=== PATIENT | male | born 1970 | race Caucasian/White ===

== ENCOUNTER → 2022-07-11 | Outpatient (CLI) | payer OTHER, SELFPAY ==
[2022-07-11 16:54] LABS: Absolute Lymphocyte Count 2.47 X10^3/uL (0.83-4.51); Absolute Neutrophil Count 6.6 X10^3/uL (2.0-7.7); Basophil# 0.05 X10^3/uL; Basophil% 0.5 % (0-1); Eosinophil# 0.13 X10^3/uL; Eosinophils% 1.3 % (0-5); Hematocrit 42.7 % (40-54); Hemoglobin 14.8 g/dL (13.0-16.5); Lymphocyte # 2.47 X10^3/ul (0.83-4.51); Lymphocyte % 24.7 % (19-41); Mean Corp Hgb Conc 34.7 g/dL (32-36); Mean Corpuscular Hgb 29.4 pg (27.0-32.0); Mean Corpuscular Volume 84.9 fL (80-94); Mean Platelet Vol. 10.3 fl (6.2-12.0); Monocyte# 0.74 X10^3/uL; Monocyte% 7.4 % (0-10); NRBC Flagged by Analyzer 0 % (0-5); Neutrophil # 6.55 X10^3/uL (2.7-7.7); Neutrophil % 65.5 % (47-70); Platelet Count 295 K/mm3 (150-450); RBC Distribution Width CV 13.2 % (11.6-14.6); RBC Distribution Width SD 40.3 fl (35.1-43.9); Red Blood Count 5.03 M/mm3 (4.6-6.2)
[2022-07-11 17:31] LABS: Microalbumin:Creatinine Ratio 6.5 mg/g CRE (<30 mg/g CRE)
[2022-07-11 17:36] LABS: ALB/GLOB Ratio 1.1 RATIO (0.9-2.4); AST(SGOT) 16 U/L (15-37); Alanine Aminotransfer ALT/SGPT 33 U/L (16-61); Albumin, Serum 3.9 g/dL (3.2-5.0); Alkaline Phosphatase 163 U/L (45-117); Anion Gap 7 (5-15); BUN 13 mg/dL (7-18); BUN/Creat Ratio 14.8 RATIO (10-20); Calcium,Total 9.6 mg/dL (8.5-10.1); Chloride 103 mmol/L (98-107); Cholesterol 70 mg/dL (200); Creatinine, Serum 0.88 mg/dL (0.70-1.30); EST Glomerular Filtration Rate 96 mL/min (>60); Est Glom Filt Rate - Afr Amer 116 mL/min (>60); Globulin 3.5 g/dL (2.2-4.2); Glucose 171 mg/dL (74-106); High Density Lipoprotein 29 mg/dL; PSA,Total - Annual Screen 0.73 ng/mL (0.00-4.00); Potassium 3.7 mmol/L (3.5-5.1); Protein, Total 7.4 g/dL (6.4-8.2); Sodium Level 136 mmol/L (136-145); Thyroid Stim Hormone (TSH) 0.83 uIU/mL (0.358-3.74); Triglycerides 89 mg/dL; Very Low Density Lipoprotein 18 mg/dL (5-40)
== END | disposition home or self-care (01) ==
LOC: BIMLAB 16:16
PROVIDERS: Visit Provider Nurse Practitioner Family
DX: E11.9 Type 2 diabetes mellitus without complications (principal); I10 Essential (primary) hypertension; Z12.5 Encounter for screening for malignant neoplasm of prostate
CPT/HCPCS: 36415; 80053; 80061; 82043; 82570; 84153; 84443; 85025; G0103

== ENCOUNTER 2024-03-31 06:36 | Day surgery (SDC) | payer OTHER, SELFPAY ==
[2024-03-31] VITALS (8 sets, daily range): BP systolic 130–147; BP diastolic 73–81; PULSE 68–82; RESP 16–20; TEMP 36.3–37.1; O2SAT 95–98; BMI 40.4
[2024-03-31] MEDS: Lactated Ringers 1,000 ML 15 ML IV (06:59)
--- NOTE | 2024-03-31 07:06 | PCM.PRE.AN2 ---
ASA Classification* ASA Classification ASA Classification: 3 Assessment & Plan Anesthesia* Anesthesia Assessment Anesthesia Assessment: Discussed sedation and/or anesthesia options, risks, benefits, and alternatives with patient/parents/legal guardian/POA. Questions invited. The patient/parents/legal guardian/POA seems to understand and agrees to proceed with anesthesia plan. Reviewed the physical assessment, medical history, allergy history and patient home medications list prior to surgery/procedure/anesthetic and documented any changes. Performed airway and anesthesia risk assessments. Anesthesia Type Anesthesia Type: MAC (see written pre anesthesia record for full assessment) Anesthesia Focused Assessment* Temperature: 97.4 F Pulse Rate: 74 Blood Pressure: 147/81 Respiratory Rate: 16 Pulse Ox: 98 Airway Assessment Mouth opens: >3 cm Mallampati Score: II Focused Labs Anesthesia Preop lab: CBC WBC 10.0 K/mm3 (4.4-11.0) 07/11/22 16:16 RBC 5.03 M/mm3 (4.6-6.2) 07/11/22 16:16 Hgb 14.8 g/dL (13.0-16.5) 07/11/22 16:16 Hct 42.7 % (40-54) 07/11/22 16:16 Plt Count 295 K/mm3 (150-450) 07/11/22 16:16 CHEMISTRY Potassium 3.7 mmol/L (3.5-5.1) 07/11/22 16:16 Sodium 136 mmol/L (136-145) 07/11/22 16:16 BUN 13 mg/dL (7-18) 07/11/22 16:16 Creatinine 0.88 mg/dL (0.70-1.30) 07/11/22 16:16 Glucose 171 mg/dL (74-106) H 07/11/22 16:16 TSH 0.83 uIU/mL (0.358-3.74) 07/11/22 16:16 COAG Pre-Assessment Diagnosis/Proposed Procedure Planned Operative Procedure(s): CSCOPE OA Anesthesia History 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 When Was Last Pacemaker Check QUESTION #4 FULL TEXT: You/Your Family Experience fever (hyperthermia) with Anesthesia Last Oral Intake Last Oral intake: Last Oral Intake NPO since Meds taken in AM with sips of water? Meds patient instructed to take am of surgery PONV PONV - dry cure worker: PONV - dry cure worker Female No 03/25/24 10:53 HX of Motion Sickness No 03/25/24 10:53 HX of N/V After Surgery No 03/25/24 10:53 Non-Smoker Yes 03/25/24 10:53 Duration of Surgery greater No 03/25/24 10:53 than 60 minutes Number of Risk Factors 1 03/25/24 10:53 PONV Score Low Risk 03/25/24 10:53 Height & Weight Height & Weight: Anesthesia: Height & Weight Height 6 ft 1 in 03/31/24 06:52 Weight: 139 kg 03/31/24 06:52 Body Mass Index (BMI) 40.4 03/31/24 06:52 Respiratory Assessment Respiratory Assessment - dry cure worker: Respiratory Tract Infection Hx - dry cure worker Hx Respiratory Tract Infection No 03/25/24 10:53 STOP Sleep Apnea STOP Sleep Apnea - dry cure worker: STOP Sleep Apnea - dry cure worker Hx Hypertension Yes: CONTROLLED WITH MED 03/25/24 10:53 Hx Sleep Apnea Yes 03/25/24 10:53 CPAP Yes 03/25/24 10:53 BIPAP No 03/25/24 10:53 Do you snore loudly (louder than talking or can be heard Do you often feel tired/ fatigued/ sleepy during daytime? Has anyone observed you stop breathing during sleep? STOP Results Positive 03/25/24 10:53 QUESTION #5 FULL TEXT : Do you snore loudly (louder than talking or can be heard through closed doors)? 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 Specify any problems Hx of Preganancy in last 3 N/A 03/25/24 10:53 Months Nurse Filling Out Transfusion DSCHRIBER 03/25/24 10:53 & Questions: Date: 03/25/24 03/25/24 10:53 Time: 10:54 03/25/24 10:53 Patient unable to answer at this time (ie. confused, unrespo /Reproduction History /Reproductive History - dry cure worker: /Reproductive Hx- dry cure worker Hx Now No 03/25/24 10:53 Gestational Age (in weeks): EDC: Hx Hx Para Hx Section SAB No 03/25/24 10:53 Active Medications Active Medications: Current Medications Generic Name Dose Route Start Last Admin Trade Name Freq PRN Reason Stop Dose Admin Lactated Ringer's 1,000 mls @ 15 mls/hr 03/31/24 06:45 03/31/24 06:59 IV 15 mls/hr .Q48H TAMIKA Administration PFSH Medical History (Updated 03/25/24 @ 10:58 by Safia White) Marijuana use Alcohol use High cholesterol Dietary restriction CPAP (continuous positive airway pressure) dependence Former smoker Severe obesity (BMI >= 40) HTN (hypertension) ALANIS (obstructive sleep apnea) Wears glasses History of pneumonia Type 2 diabetes mellitus Home Medications ?Medication ?Instructions ?Recorded ?Last Taken ?Type apple cider vinegar 300 mg tablet 300 mg PO DAILY 07/11/22 Unknown History ascorbate calcium (vitamin C) 500 500 mg PO DAILY 07/11/22 Unknown History mg tablet ascorbic acid 100 mg-elderberry 1 tab PO DAILY 07/11/22 Unknown History fruit 50 mg chewable tablet (Airborne (elderberry)) cholecalciferol (vitamin D3) 50 50 mcg PO DAILY 07/11/22 Unknown History mcg (2,000 unit) capsule multivitamin 1 tab PO DAILY 07/11/22 Unknown History zinc gluconate 30 mg tablet 30 mg PO DAILY 07/11/22 Unknown History atorvastatin 20 mg tablet 20 mg PO DAILY #90 tabs 08/01/22 Unknown Rx lisinopril 20 mg tablet 20 mg PO DAILY #90 tabs 08/01/22 Unknown Rx metformin 500 mg tablet,extended 500 mg PO DAILY #90 tabs 01/03/23 Unknown Rx release 24 hr [id number] 250 1 tab PO BID 02/04/24 Unknown History mg-40 mg-5 mg-125 unit tablet tirzepatide 12.5 mg/0.5 mL 12.5 mg subcut TH 03/25/24 03/20/24 History subcutaneous pen injector Allergy/AdvReac Type Severity Reaction Status Date / Time No Known Allergies Allergy Verified 03/31/24 06:52 Family History Mother Diabetes Psychiatric care Father Diabetes Surgical History (Updated 03/25/24 @ 10:58 by Safia White) Hx of hernia repair Hx of gastric bypass Social History household members: children housing: house current occupational status: employed 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 sexually active: No Smoking Status: Former smoker Electronic Cigarette Use: with nicotine alcohol intake: current alcohol intake frequency: a few times a month substance use type: does not use what type of physical activity do you participate in: walking frequency: daily seatbelt use: always do you feel safe at home: Yes Review of Systems (Anesthesia) ROS Narrative System reviewed and no additional complaints, except as documented.
--- NOTE | 2024-03-31 07:45 | H&P.OPEN ---
HPI - General HPI Narrative YOLIE HART, is a 53 M who presents for screening colonoscopy. He has never had a colonoscopy in the past. He denies abdominal pain or blood in the stool. Denies family history of colon cancer. [facility] Medical History (Updated 03/25/24 @ 10:58 by Safia White) Marijuana use Alcohol use High cholesterol Dietary restriction CPAP (continuous positive airway pressure) dependence Former smoker Severe obesity (BMI >= 40) HTN (hypertension) ALANIS (obstructive sleep apnea) Wears glasses History of pneumonia Type 2 diabetes mellitus Home Medications ?Medication ?Instructions ?Recorded ?Last Taken ?Type apple cider vinegar 300 mg tablet 300 mg PO DAILY 07/11/22 Unknown History ascorbate calcium (vitamin C) 500 500 mg PO DAILY 07/11/22 Unknown History mg tablet ascorbic acid 100 mg-elderberry 1 tab PO DAILY 07/11/22 Unknown History fruit 50 mg chewable tablet (Airborne (elderberry)) cholecalciferol (vitamin D3) 50 50 mcg PO DAILY 07/11/22 Unknown History mcg (2,000 unit) capsule multivitamin 1 tab PO DAILY 07/11/22 Unknown History zinc gluconate 30 mg tablet 30 mg PO DAILY 07/11/22 Unknown History atorvastatin 20 mg tablet 20 mg PO DAILY #90 tabs 08/01/22 Unknown Rx lisinopril 20 mg tablet 20 mg PO DAILY #90 tabs 08/01/22 Unknown Rx metformin 500 mg tablet,extended 500 mg PO DAILY #90 tabs 01/03/23 Unknown Rx release 24 hr [id number] 250 1 tab PO BID 02/04/24 Unknown History mg-40 mg-5 mg-125 unit tablet tirzepatide 12.5 mg/0.5 mL 12.5 mg subcut TH 03/25/24 03/20/24 History subcutaneous pen injector Allergy/AdvReac Type Severity Reaction Status Date / Time No Known Allergies Allergy Verified 03/31/24 06:52 Family History Mother Diabetes Psychiatric care Father Diabetes Surgical History (Updated 03/25/24 @ 10:58 by Safia White) Hx of hernia repair Hx of gastric bypass Social History household members: children housing: house current occupational status: employed 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[employer] sexually active: No Smoking Status: Former smoker Electronic Cigarette Use: with nicotine alcohol intake: current alcohol intake frequency: a few times a month substance use type: does not use what type of physical activity do you participate in: walking frequency: daily seatbelt use: always do you feel safe at home: Yes Past Medical/Surgical History Planned Operation Planned Operative Procedure(s): CSCOPE OA Previous Hospitalizations/Surgeries HX Hospitalizations: No Any Problems With Anesthesia: No You/Your Family Experience Fever (Hyperthermia) With Anes: No Cholinesterase deficiency: No Cardiovascular Hx Hypertension: Yes (CONTROLLED WITH MED) Respiratory Hx Sleep Apnea: Yes CPAP: Yes BIPAP: No Hx Respiratory Tract Infection/Cold (presently): No Result (for STOP score): Positive Smoking Status: Former smoker Neurological Does patient have nerve stimulator: No Reproduction : No Miscellaneous Recent Exposure to Contagious Disease: No Allergies No Known Allergies Allergy (Verified 03/31/24 06:52) Discharge Is Pt Admitted From a [facility], or a Retirement: No After D/C, Where Do you Plan to Go: Return Home Vital Signs Vital Signs Vital Signs: 03/31/24 06:52 03/31/24 06:52 03/31/24 07:06 Temperature 97.4 F L 97.4 F L Temperature Source Temporal Pulse Rate 74 74 Respiratory Rate 16 16 Respiratory Pattern Normal Blood Pressure 147/81 H 147/81 H Blood Pressure Mean 103 Blood Pressure Source Monitor Blood Pressure Position Semi-Fowlers Blood Pressure Location Right Arm Pulse Ox 98 98 Oxygen Delivery Method Room Air Weight Weight: 306 lb 7.08 oz Body Mass Index (BMI) 40.4 Physical Exam Const alert and oriented x3 HEENT normocephalic Eyes PERRL Resp normal respiratory effort and normal air movement Cardio regular rate and regular rhythm GI soft to palpation, non-tender and non-distended Extremity normal to inspection Assessment & Plan Assessment/Plan (1) Encounter for screening for malignant neoplasm of colon: PLAN: I explained endoscopy in detail to the patient. I explained the risks including but not limited to stroke or heart attack with anesthesia, perforation of the GI tract, bleeding, infection. I explained that any of these could necessitate further emergency surgery. The patient understands and all questions were answered sufficiently. The patient wishes to proceed with procedure. Joey Conte MD Pager: [facility] [address] [place] [address], [address] [place] [address] Office: Surgery Risks - Colonoscopy Risks Include but are not Limited To: Risks include but are not limited to: Bleeding, perforation requiring further surgery, inability to complete colonoscopy requiring barium enema.
[2024-03-31 08:10] LABS: Bedside Glucose 139 mg/dL (74-106)
--- NOTE | 2024-03-31 08:15 | PCM.POST.ANE ---
Anesthesia: Postop Eval I Current Vital Signs Temperature: 98.3 F Pulse Rate: 82 Blood Pressure: 130/80 Respiratory Rate: 20 Pulse Ox: 95 Oxygen Delivery Method: Room Air Assessment Airway patent: Yes Spontaneous unlabored respirations: Yes Mental status: Awake and Calm nausea: No Vomiting: No Anesthesia Complication: No Fluid Hydration Crystalloid volume administer (ml): 1,050 Total IV fluid infused: 1,050 Progress Note Anesthesia document: Postop Eval 1 completed: Yes
--- NOTE | 2024-03-31 08:19 | OP.COLON_ITS ---
Patient Name: Roman Grigsby Procedure Date: 03/31/2024 7:51 AM Date of : 1970 Age: 53 Procedure: Colonoscopy Indications: Screening for colorectal malignant neoplasm Providers: Joey Conte MD Referring MD: Jamie York [facility], Centrifugal Screen Tender-c Medicines: Propofol per Anesthesia Patient Profile: Last Colonoscopy: none. The patient's first colonoscopy is today. Complications: No immediate complications. Estimated blood loss: Minimal. Procedure: Pre-Anesthesia Assessment: - Prior to the procedure, a History and Physical was performed, and patient medications and allergies were reviewed. The patient's tolerance of previous anesthesia was also reviewed. The risks and benefits of the procedure and the sedation options and risks were discussed with the patient. All questions were answered, and informed consent was obtained. Prior Anticoagulants: The patient has taken no anticoagulant or antiplatelet agents. After reviewing the risks and benefits, the patient was deemed in satisfactory condition to undergo the procedure. After I obtained informed consent, the scope was passed under direct vision. Throughout the procedure, the patient's blood pressure, pulse, and oxygen saturations were monitored continuously. The Colonoscope was introduced through the anus and advanced to the transverse colon. The colonoscopy was unusually difficult due to significant looping. The patient tolerated the procedure well. The quality of the bowel preparation was adequate to identify polyps greater than 5 mm in size. Anatomical landmarks were photographed. Scope In: 7:56:11 AM Scope Out: 8:09:55 AM Total Procedure Duration Time 0 hours 13 minutes 44 seconds Findings: The entire examined colon appeared normal. Impression: - The entire examined colon is normal. - No specimens collected. Recommendation: - Discharge patient to home. - Resume previous diet. - Continue present medications. - Repeat colonoscopy in 1 year because the examination was incomplete. - Return to GI office. Procedure Code(s): --- Professional --- 74491, 53, Colonoscopy, flexible; diagnostic, including collection of specimen(s) by brushing or washing, when performed (separate procedure) Diagnosis Code(s): --- Professional --- Z12.11, Encounter for screening for malignant neoplasm of colon CPT copyright 2021 [employer]. All rights reserved. The codes documented in this report are preliminary and upon crane manager review may be revised to meet current compliance requirements. Joey Conte MD 03/31/2024 8:19:12 AM This report has been signed electronically. Number of Addenda: 0 Note Initiated On: 03/31/2024 7:51 AM
--- NOTE | 2024-03-31 08:20 | OP.CCLET_ITS ---
03/31/2024 Jamie York [facility], Sort Supervisor-c Re : Colonoscopy procedure for Roman Grigsby [place] This procedure was performed on Sunday, March 31, 2024. My impressions and recommendations are as follows: Impressions : - The entire examined colon is normal. - No specimens collected. Recommendations : - Discharge patient to home. - Resume previous diet. - Continue present medications. - Repeat colonoscopy in 1 year because the examination was incomplete. - Return to GI office. My findings are described in the full procedure note, which is enclosed. If I can be of further assistance, please feel free to contact me at Doctor phone number(s): , Work: . Sincerely, Joey Conte MD 03/31/2024 8:19:12 AM This report has been signed electronically.
--- NOTE | 2024-03-31 08:34 | POSTOPAN2_ITS ---
Anesthesia Postop Eval I Sum Postop Eval Completion status Anesthesia document: Postop Eval 1 completed: Yes Anesthesia Postop Eval I Summary Anesthesia Postop Eval I Summary: Anesthesia Postop Eval I: Assessment Summary Airway patent Yes 03/31/24 08:16 PRODUCTION STAFF WORKER.SCHR Spontaneous unlabored Yes 03/31/24 08:16 PRODUCTION STAFF WORKER.SCHR respirations Mental status Awake,Calm 03/31/24 08:16 PRODUCTION STAFF WORKER.SCHR nausea No 03/31/24 08:16 PRODUCTION STAFF WORKER.SCHR Vomiting No 03/31/24 08:16 PRODUCTION [facility]AFF [facility] Anesthesia Postop Eval I: Fluid Summary Crystalloid volume administer 1,050 03/31/24 08:16 PRODUCTION STAFF WORKER.SCHR (ml) Colloids volume administered ( ml) Blood Product volume administered (ml) Total IV fluid infused 1,050 03/31/24 08:16 PRODUCTION STAFF WORKER.[facility] Anesthesia Postop Eval I: Summary Notes Anesthesia Complication No 03/31/24 08:16 PRODUCTION STAFF WORKER.[facility] Anesthesia Complication Comment: Post-operative progress note Anesthesia: Postop Eval II Evaluation Mental status: Awake Pain Level: 0 nausea: No Vomiting: No
--- NOTE | 2024-03-31 08:34 | PCM.POSTANE2 ---
Anesthesia Postop Eval I Sum Postop Eval Completion status Anesthesia document: Postop Eval 1 completed: Yes Anesthesia Postop Eval I Summary Anesthesia Postop Eval I Summary: Anesthesia Postop Eval I: Assessment Summary Airway patent Yes 03/31/24 08:16 ADVISOR CONSULTANT.SCHR Spontaneous unlabored Yes 03/31/24 08:16 ADVISOR CONSULTANT.SCHR respirations Mental status Awake,Calm 03/31/24 08:16 ADVISOR CONSULTANT.SCHR nausea No 03/31/24 08:16 ADVISOR CONSULTANT.SCHR Vomiting No 03/31/24 08:16 ADVISOR CONS[facility]ANT.[facility] Anesthesia Postop Eval I: Fluid Summary Crystalloid volume administer 1,050 03/31/24 08:16 ADVISOR CONSULTANT.SCHR (ml) Colloids volume administered ( ml) Blood Product volume administered (ml) Total IV fluid infused 1,050 03/31/24 08:16 ADVISOR CONSULTANT.[facility] Anesthesia Postop Eval I: Summary Notes Anesthesia Complication No 03/31/24 08:16 ADVISOR CONSULTANT.[facility] Anesthesia Complication Comment: Post-operative progress note Anesthesia: Postop Eval II Evaluation Mental status: Awake Pain Level: 0 nausea: No Vomiting: No
--- NOTE | 2024-03-31 10:05 | RAD_ITS ---
STUDY: BARIUM ENEMA. REASON FOR EXAM: Male, 53 years old. Incomplete colonoscopy FLUOROSCOPY TIME (if supplied): ( 1 minute and 44 seconds ) minutes/seconds. 82.29 mGy. 15 spot images were obtained. TECHNIQUE: A ophthalmic aide film was obtained. The gas pattern is unremarkable. Contrast was introduced retrograde through the rectum. Entire colon was opacified. Imaging was obtained. COMPARISON: None. FINDINGS: There is redundancy of the sigmoid colon. No evidence of obstruction to the retrograde or anterograde flow of contrast. No mass lesion is seen. No filling defects are present. RAD/Barium Enema w/Air Contrast IMPRESSION: Redundancy of the sigmoid colon. Electronically Signed: Bello Mejia MD at 11:04 EDT ,
== END 2024-03-31 09:25 | disposition home or self-care (01) ==
LOC: EN 06:37 → AC 06:38
PROVIDERS: PCP Nurse Practitioner Family; Referring Provider Nurse Practitioner Family; Visit Provider Surgery
PROC: 0DJD8ZZ Inspection of Lower Intestinal Tract, Via Natural or Artificial Opening Endoscopic (ICD-10-PCS; CPT 45378; principal; 2024-03-31 07:55)
DX: Z12.11 Encounter for screening for malignant neoplasm of colon (principal); E11.9 Type 2 diabetes mellitus without complications; I10 Essential (primary) hypertension; E78.00 Pure hypercholesterolemia, unspecified; Z79.84 Long term (current) use of oral hypoglycemic drugs; Z79.85 Long-term (current) use of injectable non-insulin antidiabetic drugs; Z87.891 Personal history of nicotine dependence; G47.33 Obstructive sleep apnea (adult) (pediatric); Z99.89 Dependence on other enabling machines and devices; Z79.899 Other long term (current) drug therapy
CPT/HCPCS: 45378; 74280; 82962; J7120

== ENCOUNTER → 2024-06-26 | Outpatient (CLI) | payer OTHER, SELFPAY ==
[2024-06-26 12:48] LABS: Absolute Neutrophil Count 5.3 X10^3/uL (2.0-7.7); Basophil# 0.05 X10^3/uL; Basophil% 0.6 % (0-1); Eosinophils% 1.3 % (0-5); Hematocrit 45.3 % (40-54); Hemoglobin 14.8 g/dL (13.0-16.5); Lymphocyte % 22.9 % (19-41); Mean Corp Hgb Conc 32.7 g/dL (32-36); Mean Corpuscular Hgb 28.2 pg (27.0-32.0); Mean Corpuscular Volume 86.3 fL (80-94); Mean Platelet Vol. 9.6 fl (6.2-12.0); Monocyte# 0.61 X10^3/uL; Monocyte% 7.8 % (0-10); NRBC Flagged by Analyzer 0 % (0-5); Neutrophil # 5.27 X10^3/uL (2.7-7.7); Platelet Count 239 K/mm3 (150-450); RBC Distribution Width CV 13.4 % (11.6-14.6); RBC Distribution Width SD 41.4 fl (35.1-43.9); Red Blood Count 5.25 M/mm3 (4.6-6.2); White Blood Count 7.9 K/mm3 (4.4-11.0)
[2024-06-26 13:28] LABS: ALB/GLOB Ratio 1.1 RATIO (0.9-2.4); AST(SGOT) 18 U/L (15-37); Alanine Aminotransfer ALT/SGPT 27 U/L (16-61); Albumin, Serum 3.9 g/dL (3.2-5.0); Alkaline Phosphatase 149 U/L (45-117); Anion Gap 6 (5-15); BUN 13 mg/dL (7-18); BUN/Creat Ratio 15.6 RATIO (10-20); Calcium,Total 10.4 mg/dL (8.5-10.1); Chloride 108 mmol/L (98-107); Cholesterol 71 mg/dL (200); Creatinine, Serum 0.84 mg/dL (0.70-1.30); EST Glomerular Filtration Rate 101 mL/min (>60); Est Glom Filt Rate - Afr Amer 123 mL/min (>60); Globulin 3.4 g/dL (2.2-4.2); Glucose 113 mg/dL (74-106); High Density Lipoprotein 30 mg/dL; PSA,Total- Diagnostic 0.89 ng/mL (0.0-4.0); Potassium 4.3 mmol/L (3.5-5.1); Protein, Total 7.3 g/dL (6.4-8.2); Sodium Level 139 mmol/L (136-145); Triglycerides 138 mg/dL; Very Low Density Lipoprotein 28 mg/dL (5-40)
[2024-06-26 13:30] LABS: HIV - WCH Non-Reactive (Nonreactive); Syphilis Antibodies Non-reactive
[2024-06-26 13:33] LABS: Microalbumin,Random Urine 5.7 mg/L (NO RANGE EST.)
== END | disposition home or self-care (01) ==
LOC: VSLAB 10:21
PROVIDERS: PCP Nurse Practitioner Family; Visit Provider Nurse Practitioner Family
DX: Z00.00 Encounter for general adult medical examination without abnormal findings (principal)
CPT/HCPCS: 36415; 80053; 80061; 82043; 84153; 84443; 85025; 86703; 86780